=== PATIENT | male | born 1970 | race Caucasian/White ===

== ENCOUNTER 2021-06-27 09:54 | Emergency (ER) | payer OTHER ==
[~2021-06-27] VITALS: Ht 180.3 cm; Wt 99.8 kg
[2021-06-27 10:21] VITALS: BP 126/82
[2021-06-27 12:08] LABS: HEMATOCRIT 37.9 % (42.0-52.0); HEMOGLOBIN 12.8 gm/dL (14.0-18.0); MCH 27.4 pg (26.0-34.0); MCHC 33.8 g/dL (28.0-37.0); MCV 81.2 fL (80.0-100.0); PLATELET COUNT 257 thou/uL (150-400); RBC 4.67 mil/uL (4.50-6.00); RDW 14.6 % (10.5-14.5); WBC 6.1 thou/uL (4.0-11.0)
[2021-06-27 12:19] LABS: CALCIUM 8.5 mg/dL (8.5-10.1); CREATININE 1.1 mg/dL (0.7-1.3); POTASSIUM 3.6 mmol/L (3.5-5.1)
[2021-06-27 13:11] LABS: ABSOLUTE NEUTROPHILS 4.5 thou/uL (1.4-8.2)
[2021-06-27] MEDS ORDERED: PROAIR HFA8.5 GM INH (13:38)
[2021-06-27] MEDS ORDERED: AZITHROMYCIN 2250 MG PO (13:38)
[2021-06-27] MEDS ORDERED: NAPROSYN500 MG PO (13:38)
== END 2021-06-27 14:16 | disposition home or self-care (01) ==
LOC: ER 09:54
PROVIDERS: Emergency Medicine
DX: U07.1 COVID-19 (principal)